=== PATIENT | female | born 1970 | race Two or more races ===

== ENCOUNTER → 2024-11-06 | Outpatient (CLI) | payer MEDICAID, SELFPAY ==
--- NOTE | 2024-11-06 12:00 | XR_ITS ---
MRI shoulder, right, without contrast. Date and time: November 06, 2024 1212 hours INDICATIONS: Right shoulder pain decreased range of motion joint clicking and paresthesias 6 months Technique: Multiple axial, sagittal and coronal sections of the shoulder have been obtained. Siemens high-resolution 1.5 Yessica MRI scanner is utilized. Axial fat-suppressed sections, TR 2350, TE 18 T2-weighted coronal fat-saturated images, TR 3500, TE 7100 T1-weighted coronal images, TR 500, TE 15 T2-weighted sagittal fat-saturated images, TR 3500, TE 57 T1-weighted sagittal sections, TR 504, TE 13. Findings: Supraspinatus tendon insertion is abnormal, 12 mm full-thickness tear. Infraspinatus tendon insertion is suspicious for full-thickness tear. Subscapularis insertion is intact. Subscapularis bursa is not seen. Long head of the biceps is in the bicipital groove. No definite tear of the biceps superior labral anchor is seen. Retraction of the musculotendinous junction of the rotator cuff is evident. Tendinosis pattern is moderate. Distance between the acromium and humeral head is 3.9 mm Atrophy of the supraspinatus muscle is moderate. Atrophy of the infraspinatus muscle is mild. Sagittal sections demonstrate a horizontal acromion. Acromioclavicular joint demonstrates mild osteoarthritis . Osacromiale is not identified. Labral margins intact. Bony glenoid fossa on the sagittal sections does not demonstrate osseous defect. Occult fracture or area of avascular necrosis is not seen. Acromioclavicular joint separation is not visible. Defect in the posterolateral margin of the humeral head is not seen Impression: 12 mm full-thickness tear supraspinatous tendon insertion Suspicious for irregular full-thickness tear infraspinatus tendon insertion
== END | disposition home or self-care (01) ==
LOC: SMRI 11-12 10:05
PROVIDERS: PCP Nurse Practitioner Family; Referring Provider Nurse Practitioner Family; Visit Provider Nurse Practitioner Family
DX: M75.101 Unspecified rotator cuff tear or rupture of right shoulder, not specified as traumatic (principal)
CPT/HCPCS: 73221

== ENCOUNTER → 2024-11-09 | Outpatient (CLI) | payer MEDICAID, SELFPAY ==
--- NOTE | 2024-11-09 09:45 | XR_ITS ---
Examination: Screening digital mammography, bilateral Computer aided detection 3-D breast Tomosynthesis, bilateral Date and time of exam: November 09, 2024 0928 hours Compared to mammograms dating to January 26, 2009 Indication: Screening Technique: Nonmagnified MLO, CC views of the breasts to been obtained, reconstructed from 3-D Tomosynthesis images. R2 computer aided detection program utilized for evaluation of suspicious masses and/or abnormal calcifications. 3-D Tomosynthesis images obtained. Findings: The breasts are heterogeneously dense, which may obscure small masses Benign calcifications. No interval suspicious masses Impression: BI-RADS category II: Benign Findings. Recommend 1 year follow-up mammogram.
== END | disposition home or self-care (01) ==
PROVIDERS: PCP Nurse Practitioner Family; Referring Provider Nurse Practitioner Family; Visit Provider Nurse Practitioner Family
DX: Z12.31 Encounter for screening mammogram for malignant neoplasm of breast (principal); R92.323 Mammographic fibroglandular density, bilateral breasts; R92.1 Mammographic calcification found on diagnostic imaging of breast
CPT/HCPCS: 77063; 77067

== ENCOUNTER 2025-08-03 10:48 | Outpatient (RCR) | payer MEDICAID, SELFPAY ==
--- NOTE | 2025-08-03 11:12 | PT.OIERPT ---
PT OP Initial Eval Patient Information Outpatient Physical Therapy Treatment Date: 08/03/25 Visit Reasons: RT ROTATOR CUFF Medical Diagnosis: [id number] Treatment Dx #1: R shoulder pain Treatment Dx #2: Decreased R shoulder ROM Start of Care: 08/03/25 Date of Onset: 04/26/25 Smoking Status Smoking Status: Never smoker Initial Assessment Subjective: Pt is 54 yr old mauritanian speaking female s/p R RCR in April presents with R shoulder pain with lowering the UE after reaching up. Increased pain with laying on that side and it goes numb sometimes. She points to the anterior shoulder and the pain runs down the arm to the elbow which limits OH reaching and lifting. She isn't working now and has pain with HH chores. PMH: x2, inguinal hernia Pt goal: to get rid of the pain and better ROM to reach OH Objective: R shoulder AROM: ? FF: 95 deg ? Abd: 90 deg ? ER: 80 deg ? HBB: to L3 ? Strength: 3+/5 in all planes ? PROM: end-range pain Assessment: Pt presents with decreased ROM and strength in all planes limited by pain consistent with R RC repair and tendinopathy along with adaptive shortening due to scar tissue adhesions. Pt requires skilled therapy in order to decrease pain and improve ROM and strength and has fair rehab potential. Short Term and [employer] Goals 1. Ind with HEP 2. Improved AROM into all planes to at least 130 deg FF and abduction 3. Pt will reach OH with <=3/10 R shoulder pain 4. Improved strength into all planes to at least 4-/5 Treatment Plan ? 1. Manual therapy ? 2. Therex ? 3. Modalities as indicated, moist heat, ice, estim Frequency and Duration: 2x a week for 8 weeks plus the evaluation Certification Dates: 08/03/25 to 11/01/25 Procedure Charges OP PT Eval Mod Complex 30 minutes: Yes
== END 2025-08-03 23:59 | disposition home or self-care (01) ==
LOC: CPTX 10:48
PROVIDERS: PCP Orthopaedic Surgery; Referring Provider Orthopaedic Surgery; Visit Provider Orthopaedic Surgery
DX: M25.511 Pain in right shoulder (principal); Z98.890 Other specified postprocedural states
CPT/HCPCS: 97162

== ENCOUNTER 2025-08-19 11:00 | Outpatient (RCR) | payer MEDICAID, SELFPAY ==
--- NOTE | 2025-08-09 14:34 | PT.ODAYNRPT ---
PT Outpatient Daily Note OP Daily Note Outpatient Physical Therapy Treatment Date: 08/09/25 Visit Reasons: RT ROTATOR CUFF Subjective: Doing HEP with claribel at home with soreness reaching up to the side Objective: See F/S for therex Assessment: Good AAROM into flexion and abduction to almost full and some soreness into abduction Plan: Continue per POC Length of Time (minutes) of Treatment: 30 Minutes Procedure Charges Therapeutic Exercise 30 minutes: Yes
--- NOTE | 2025-08-12 11:58 | PT.ODAYNRPT ---
PT Outpatient Daily Note OP Daily Note Outpatient Physical Therapy Treatment Date: 08/12/25 Visit Reasons: RT ROTATOR CUFF Subjective: Doing HEP with claribel at home with soreness reaching up to the side Objective: See F/S for therex Assessment: Good AAROM into flexion and abduction to almost full and some soreness into abduction Plan: Continue per POC Length of Time (minutes) of Treatment: 30 Minutes Procedure Charges Therapeutic Exercise 30 minutes: Yes
--- NOTE | 2025-08-19 13:04 | PT.ODAYNRPT ---
PT Outpatient Daily Note OP Daily Note Outpatient Physical Therapy Treatment Date: 08/19/25 Visit Reasons: RT ROTATOR CUFF Subjective: Pt reports shoulder is sore and achy. Objective: Please see flow sheet for ther ex list. Assessment: Pt presents with minimal pain modified interventions to accommodate reported pain and soreness. Plan: Continue with POC. Length of Time (minutes) of Treatment: 30 Minutes Procedure Charges Therapeutic Exercise 30 minutes: Yes
== END 2025-09-03 23:59 | disposition home or self-care (01) ==
LOC: CPTX 11:00
PROVIDERS: PCP Orthopaedic Surgery; Referring Provider Orthopaedic Surgery; Visit Provider Orthopaedic Surgery
DX: M25.511 Pain in right shoulder (principal); Z98.890 Other specified postprocedural states
CPT/HCPCS: 97110

== ENCOUNTER 2025-09-28 09:30 | Outpatient (RCR) | payer MEDICAID, SELFPAY ==
--- NOTE | 2025-09-13 13:06 | PT.ODAYNRPT ---
PT Outpatient Daily Note OP Daily Note Outpatient Physical Therapy Treatment Date: 09/13/25 Visit Reasons: RT ROTATOR CUFF Subjective: Doing HEP with claribel at home with soreness reaching up to the side Objective: See F/S for therex Assessment: Good AAROM into flexion and abduction to almost full and some soreness into abduction at about 100 deg that limits AROM Plan: Continue per POC Length of Time (minutes) of Treatment: 30 Minutes Procedure Charges Therapeutic Exercise 30 minutes: Yes
--- NOTE | 2025-09-21 11:07 | PT.ODAYNRPT ---
PT Outpatient Daily Note OP Daily Note Outpatient Physical Therapy Treatment Date: 09/21/25 Visit Reasons: RT ROTATOR CUFF Subjective: Pt reports R shoulder continues to be painful but notices it is moving better. Objective: Please see flow sheet for ther ex list. Assessment: Added AAROm in shoulder extension, initially pt guarded but after a few reps pt range and tolerance improved. Plan: Continue with pOC. Length of Time (minutes) of Treatment: 30 Minutes Procedure Charges Therapeutic Exercise 30 minutes: Yes
--- NOTE | 2025-09-28 10:01 | PT.ODAYNRPT ---
PT Outpatient Daily Note OP Daily Note Outpatient Physical Therapy Treatment Date: 09/28/25 Visit Reasons: RT ROTATOR CUFF Subjective: Continued R shoulder pain especially with reaching up to the side Objective: See F/S for therex P x5' R shoulder Assessment: Good AAROM into flexion and abduction to almost full and some soreness into abduction at about 100 deg that limits AROM Plan: Continue per POC Length of Time (minutes) of Treatment: 30 Minutes Procedure Charges Therapeutic Exercise 30 minutes: Yes
== END 2025-10-03 23:59 | disposition home or self-care (01) ==
LOC: CPTX 09:30
PROVIDERS: PCP Orthopaedic Surgery; Referring Provider Orthopaedic Surgery; Visit Provider Orthopaedic Surgery
DX: M25.511 Pain in right shoulder (principal); Z98.890 Other specified postprocedural states
CPT/HCPCS: 97110

== ENCOUNTER 2025-10-06 09:30 | Outpatient (RCR) | payer MEDICAID, SELFPAY ==
--- NOTE | 2025-10-04 11:09 | PT.ODAYNRPT ---
PT Outpatient Daily Note OP Daily Note Outpatient Physical Therapy Treatment Date: 10/04/25 Visit Reasons: RT rotar cuff Subjective: Continued R shoulder pain especially with reaching up to the side and at night Objective: See F/S for therex Assessment: Improved AROM into flexion and abduction in supine with some soreness into abduction Plan: Continue per POC Length of Time (minutes) of Treatment: 30 Minutes Procedure Charges Therapeutic Exercise 30 minutes: Yes
--- NOTE | 2025-10-06 18:37 | PT.ODAYNRPT ---
PT Outpatient Daily Note OP Daily Note Outpatient Physical Therapy Treatment Date: 10/06/25 Visit Reasons: RT rotar cuff Subjective: Continued R shoulder pain especially with reaching up to the side and at night Objective: See F/S for therex Assessment: Improved AROM into flexion and abduction in supine with some soreness into abduction Plan: Continue per POC Length of Time (minutes) of Treatment: 30 Minutes Procedure Charges Therapeutic Exercise 30 minutes: Yes
== END 2025-11-03 23:59 | disposition home or self-care (01) ==
LOC: CPTX 09:30
PROVIDERS: PCP Orthopaedic Surgery; Referring Provider Orthopaedic Surgery; Visit Provider Orthopaedic Surgery
DX: M25.511 Pain in right shoulder (principal); Z98.890 Other specified postprocedural states
CPT/HCPCS: 97110